=== PATIENT | male | born 1945 | race Caucasian/White ===

== ENCOUNTER 2024-04-05 13:10 | Day surgery (SDC) | payer MEDICARE ==
[2024-04-05] MEDS ORDERED: LIDOCAINE HCL 1% AMPUL 5 ML IJ ONE (13:11)
[2024-04-05] MEDS ORDERED: Sodium Chloride 0.9(Preservative Free) 10 ML IJ ONE (13:11)
[2024-04-05] MEDS ORDERED: Depo-Medrol 40 MG/ML IM ONE (13:11)
--- NOTE | 2024-04-05 17:00 | XRAY ---
Indication: Lumbar SHANDA. Intraoperative fluoroscopy provided for 16 seconds. 2 digital spot image submitted for interpretation demonstrates posterior needle tip projecting posterior to lumbosacral junction. Small amount of contrast injected for needle tip placement. Correlate with intraoperative findings/report.
--- NOTE | 2024-04-05 17:20 | XRAY ---
16 seconds of fluoroscopy was used in surgery for a lumbar SHANDA.
== END 2024-04-05 15:35 | disposition home or self-care (01) ==
LOC: SDC-PAIN 13:10
PROVIDERS: ATTEND Psychiatry & Neurology Pain Medicine
DX: M54.16 Radiculopathy, lumbar region (principal); E11.9 Type 2 diabetes mellitus without complications
CPT/HCPCS: 62323; 72100; 77003; 82947; Q9966

== ENCOUNTER 2024-07-19 07:11 | Day surgery (SDC) | payer MEDICARE ==
[2024-07-19] MEDS ORDERED: Sodium Chloride 0.9(Preservative Free) 10 ML IJ ONE (07:12)
[2024-07-19] MEDS ORDERED: dexAMETHasone sodium phosphate IJ ONE (07:12)
[2024-07-19] MEDS ORDERED: propofoL IV ONE (09:16)
--- NOTE | 2024-07-19 10:37 | XRAY ---
Indication: Right L4-S1 transforaminal SHANDA. Intraoperative fluoroscopy provided for 22 seconds. 4 digital spot image submitted for interpretation demonstrates posterior needle tips projecting over expected right L4 and L5 nerve roots. Small amount of contrast injected for needle placement. Correlate with intraoperative findings/report.
--- NOTE | 2024-07-19 10:39 | XRAY ---
22 seconds of fluoroscopy was used in surgery for a right L4-S1 transforaminal SHANDA.
== END 2024-07-19 09:43 | disposition home or self-care (01) ==
LOC: SDC-PAIN 07:11
PROVIDERS: ATTEND Psychiatry & Neurology Pain Medicine
DX: M54.16 Radiculopathy, lumbar region (principal); E11.9 Type 2 diabetes mellitus without complications
CPT/HCPCS: 64483; 64484; 72100; 77003; 82947; J1100; J2704; Q9966

== ENCOUNTER 2024-08-17 06:18 | Day surgery (SDC) | payer MEDICARE ==
[2024-08-17] MEDS ORDERED: methylPREDNISolone acetate IM ONE (06:19)
[2024-08-17] MEDS ORDERED: Sodium Chloride 0.9(Preservative Free) 10 ML IJ ONE (06:19)
[2024-08-17] MEDS ORDERED: propofoL IV ONE (08:56)
--- NOTE | 2024-08-17 11:09 | XRAY ---
17 seconds of fluoroscopy was used in surgery for a caudal SHANDA.
--- NOTE | 2024-08-17 11:09 | XRAY ---
Indication: Caudal SHANDA. Intraoperative fluoroscopy provided for 17 seconds. 2 digital spot image submitted for interpretation demonstrates caudal needle tip projecting mid sacrum. Small amount of contrast injected for needle tip placement. Correlate with intraoperative findings/report.
== END 2024-08-17 09:17 | disposition home or self-care (01) ==
LOC: SDC-PAIN 06:18
PROVIDERS: ATTEND Psychiatry & Neurology Pain Medicine
DX: M54.16 Radiculopathy, lumbar region (principal); E11.9 Type 2 diabetes mellitus without complications
CPT/HCPCS: 62323; 72220; 77003; 82947; J1010; J2704; Q9966

== ENCOUNTER 2024-10-18 07:43 | Day surgery (SDC) | payer MEDICARE ==
[2024-10-18] MEDS ORDERED: LIDOCAINE HCL 1% 50 MG/5 ML VL IJ ONE (07:44)
[2024-10-18] MEDS ORDERED: dexAMETHasone sodium phosphate IJ ONE (07:44)
[2024-10-18] MEDS ORDERED: propofoL IV ONE (09:53)
[2024-10-18] MEDS ORDERED: Xylocaine-Mpf 2% 5 Ml Vial ONE (10:10)
[2024-10-18] MEDS ORDERED: Lactated Ringers 1,000 ML IV ONE (10:12)
--- NOTE | 2024-10-18 21:14 | XRAY ---
Indication: Right piriformis injection. Intraoperative fluoroscopy provided for 26 seconds. Single digital spot image submitted for interpretation demonstrates posterior needle tip projecting over right piriformis. Small amount of contrast injected for needle tip placement. Correlate with intraoperative findings/report. Incidental right hip arthroplasty
--- NOTE | 2024-10-18 21:21 | XRAY ---
26 seconds of fluoroscopy was used in surgery for a right piriformis injection.
== END 2024-10-18 10:15 | disposition home or self-care (01) ==
LOC: SDC-PAIN 07:43
PROVIDERS: ATTEND Psychiatry & Neurology Pain Medicine
DX: M79.18 Myalgia, other site (principal); E11.9 Type 2 diabetes mellitus without complications
CPT/HCPCS: 20552; 72170; 77002; 82947; 99100; J1100; J2704; Q9966

== ENCOUNTER 2025-01-04 06:57 | Day surgery (SDC) | payer MEDICARE ==
[2025-01-04] MEDS ORDERED: LIDOCAINE HCL 1% 50 MG/5 ML VL IJ ONE (06:58)
[2025-01-04] MEDS ORDERED: Depo-Medrol 40 MG/ML IM ONE (06:58)
[2025-01-04] MEDS ORDERED: BUPIVACAINE 0.5% VIAL IJ ONE (06:58)
[2025-01-04] MEDS ORDERED: propofoL IV ONE (08:23)
--- NOTE | 2025-01-04 10:35 | XRAY ---
Indication: Left L4-S1 RFA. Intraoperative fluoroscopy provided for 11 seconds. 3 digital spot images submitted for interpretation demonstrates posterior needle tips projecting over expected left L4-S1 nerve roots. Correlate with intraoperative findings/report.
--- NOTE | 2025-01-04 10:36 | XRAY ---
11 seconds of fluoroscopy was used in surgery for a left L4-S1 RFA.
[2025-01-04] MEDS ORDERED: Lactated Ringers 1,000 ML IV ONE (12:15)
== END 2025-01-04 08:52 | disposition home or self-care (01) ==
LOC: SDC-PAIN 06:57
PROVIDERS: ATTEND Psychiatry & Neurology Pain Medicine
DX: M47.817 Spondylosis without myelopathy or radiculopathy, lumbosacral region (principal); E11.9 Type 2 diabetes mellitus without complications

== ENCOUNTER 2025-04-25 07:43 | Day surgery (SDC) | payer MEDICARE ==
[2025-04-25] MEDS ORDERED: methylPREDNISolone acetate IM ONE (07:44)
[2025-04-25] MEDS ORDERED: Sodium Chloride 0.9(Preservative Free) 10 ML IJ ONE (07:44)
[2025-04-25] MEDS ORDERED: LIDOCAINE HCL 1% 50 MG/5 ML VL IJ ONE (07:44)
[2025-04-25] MEDS ORDERED: propofoL IV ONE (09:43)
--- NOTE | 2025-04-25 12:06 | XRAY ---
Indication: Caudal SHANDA. Intraoperative fluoroscopy provided for 12 seconds. 2 digital spot image submitted for interpretation demonstrates caudal needle tip projecting mid sacrum. Small amount of contrast injected for needle tip placement. Correlate with intraoperative findings/report.
--- NOTE | 2025-04-25 12:06 | XRAY ---
Indication: Bilateral piriformis injection. Intraoperative fluoroscopy provided for 17 seconds. 2 digital spot image submitted for interpretation demonstrates posterior needle tip projecting over left and right piriformis. Small amount of contrast injected for both needle tip placement. Correlate with intraoperative findings/report. Incidental incompletely visualized right hip arthroplasty.
--- NOTE | 2025-04-25 12:10 | XRAY ---
12 seconds of fluoroscopy was used in surgery for a caudal SHANDA.
--- NOTE | 2025-04-25 12:10 | XRAY ---
17 seconds of fluoroscopy was used in surgery for a bilateral piriformis injection.
[2025-04-25] MEDS ORDERED: Lactated Ringers 1,000 ML IV ONE (13:34)
== END 2025-04-25 10:12 | disposition home or self-care (01) ==
LOC: SDC-PAIN 07:43
PROVIDERS: ATTEND Psychiatry & Neurology Pain Medicine
DX: M54.16 Radiculopathy, lumbar region (principal); M79.18 Myalgia, other site; E11.9 Type 2 diabetes mellitus without complications